=== PATIENT | male | born 1965 | race Caucasian/White ===

== ENCOUNTER 2021-01-31 15:35 | Emergency (ER) | payer SELFPAY ==
[~2021-01-31] VITALS: Ht 175.3 cm; Wt 90.7 kg
== END 2021-01-31 15:55 | disposition home or self-care (01) ==
LOC: ER 15:35
DX: Z00.00 Encounter for general adult medical examination without abnormal findings (principal); Z20.822 Contact with and (suspected) exposure to COVID-19
CPT/HCPCS: 99282

== ENCOUNTER 2023-07-07 01:56 | Emergency (ER) | payer OTHER ==
[~2023-07-07] VITALS: Ht 175.3 cm; Wt 83.9 kg
[2023-07-07 02:54] LABS: BASOPHILS ABSOLUTE AUTO 0.03 K/mm3 (0.00-0.23); BASOPHILS PERCENT AUTO 0 % (0-2); EOSINOPHILS ABSOLUTE AUTO 0.03 K/mm3 (0.00-0.68); EOSINOPHILS PERCENT AUTO 0 % (0-6); Hematocrit 41.9 % (37.0-53.0); IMMATURE GRAN ABSOLUTE AUTO 0.02 K/mm3 (0.00-0.10); IMMATURE GRAN PERCENT AUTO 0 % (0-1); LYMPHOCYTES ABSOLUTE AUTO 1.01 K/mm3 (0.84-5.20); LYMPHOCYTES PERCENT AUTO 12 % (21-46); MONOCYTES ABSOLUTE AUTO 0.56 K/mm3 (0.16-1.47); MONOCYTES PERCENT AUTO 7 % (4-13); Mean Corpuscular HGB 30.8 pg (26.0-34.0); Mean Corpuscular HGB Conc 33.4 g/dL (31.5-36.5); Mean Corpuscular Volume 92 fL (80-100); Mean Platelet Volume 9.2 fL (9.1-12.4); NEUTROPHILS ABSOLUTE AUTO 6.95 K/mm3 (1.96-9.15); NEUTROPHILS PERCENT AUTO 81 % (41-73); Platelet Count 204 K/mm3 (150-400); RDW Coefficient Variation 12.2 % (11.7-14.2); Red Blood Cell Count 4.55 M/mm3 (4.30-5.90)
[2023-07-07 03:05] LABS: Albumin, Blood 3.5 g/dL (3.4-5.0); Albumin/Globulin Ratio 0.9 (0.8-1.8); Bilirubin, Total 0.5 mg/dL (0.1-1.0); Bun/Creatinine Ratio 24.7 (12.0-20.0); Calcium, Blood 8.2 mg/dL (8.5-10.1); Creatinine, Blood 0.77 mg/dL (0.60-1.20); Globulin, Blood 3.8 g/dL (2.2-4.0); Potassium, Blood 3.8 mmol/L (3.5-5.5); Total Protein, Blood 7.3 g/dL (6.4-8.2)
[2023-07-07] MEDS ORDERED: ACET500 PO (06:10)
[2023-07-07 06:15] VITALS: BP 107/71
== END 2023-07-07 06:18 | disposition home or self-care (01) ==
LOC: ER 01:56
PROVIDERS: Emergency Medicine
DX: S02.32XA Fracture of orbital floor, left side, initial encounter for closed fracture (principal); S02.2XXA Fracture of nasal bones, initial encounter for closed fracture; S01.112A Laceration without foreign body of left eyelid and periocular area, initial encounter; Z87.820 Personal history of traumatic brain injury; Y04.8XXA Assault by other bodily force, initial encounter
CPT/HCPCS: 12011; 70450; 70486; 71045; 72125; 73030; 73502; 80053; 85025; 86850; 86900; 86901; 99285-25

== ENCOUNTER 2025-05-29 10:06 | Inpatient (IN) | payer OTHER ==
[~2025-05-29] VITALS: Ht 175.3 cm; Wt 65.9 kg
[~2025-05-29 10:06] MED LIST: ACET500 PO; Cipro500 MG PO; ELIQUIS5 M2 PO; FAMO10 PO; JARDIANCE10 MG PO; METO25ER PO; TAMS.4ER PO
[2025-05-29] MEDS ORDERED: Lidocaine 2% Jelly Uro-Jet UR ONE (10:40)
[2025-05-29 10:51] LABS: BASOPHILS ABSOLUTE AUTO 0.02 K/mm3 (0.00-0.23); BASOPHILS PERCENT AUTO 0 % (0-2); EOSINOPHILS ABSOLUTE AUTO 0.01 K/mm3 (0.00-0.68); EOSINOPHILS PERCENT AUTO 0 % (0-6); Hematocrit 28.8 % (37.0-53.0); Hemoglobin 9.6 g/dL (13.5-17.5); IMMATURE GRAN ABSOLUTE AUTO 0.14 K/mm3 (0.00-0.10); IMMATURE GRAN PERCENT AUTO 1 % (0-1); LYMPHOCYTES ABSOLUTE AUTO 0.39 K/mm3 (0.84-5.20); LYMPHOCYTES PERCENT AUTO 3 % (21-46); MONOCYTES ABSOLUTE AUTO 1.59 K/mm3 (0.16-1.47); MONOCYTES PERCENT AUTO 13 % (4-13); Mean Corpuscular HGB Conc 33.3 g/dL (31.5-36.5); Mean Corpuscular Volume 89 fL (80-100); NEUTROPHILS ABSOLUTE AUTO 10.30 K/mm3 (1.96-9.15); NEUTROPHILS PERCENT AUTO 83 % (41-73); NRBC ABSOLUTE 0.00 K/mm3 (0.00-0.02); NRBC Auto 0.0 /100 WBC (0.0-0.2); Platelet Count 376 K/mm3 (150-400); RDW Coefficient Variation 14.6 % (11.7-14.2); RDW Standard Deviation 47.7 fL (35.1-46.3)
[2025-05-29] MEDS ORDERED: Magnesium Sulf 2 GM/Water 50ML 50 ML IV ONE (11:15)
[2025-05-29 11:18] LABS: Alanine Aminotransfer (ALT/SGP 18.0 U/L (12-78); Albumin, Blood 2.9 g/dL (3.4-5.0); Albumin/Globulin Ratio 0.5 (0.8-1.8); Anion Gap 19.0 mmol/L (3-11); Aspartate Aminotrans (AST/SGOT 12.0 U/L (12-37); Bilirubin, Total 0.2 mg/dL (0.1-1.0); Blood Urea Nitrogen 140.0 mg/dL (8-24); CO2, Blood 11.0 mmol/L (21-32); Calcium, Blood 8.8 mg/dL (8.5-10.1); Chloride, Blood 103.0 mmol/L (98-108); Creatinine, Blood 13.4 mg/dL (0.60-1.20); Globulin, Blood 5.6 g/dL (2.2-4.0); Glucose, Blood 123.0 mg/dL (70-99); Potassium, Blood 5.0 mmol/L (3.5-5.5); Sodium, Blood 128.0 mmol/L (136-145); Total Protein, Blood 8.5 g/dL (6.4-8.2)
[2025-05-29 11:25] LABS: Source, Urine Foley catheter
[2025-05-29 11:38] LABS: Bilirubin, Urine Neg (Neg); Color, Urine Red (P-Yellow); Glucose Qualitative, Urine Neg (Neg); Ketones, Urine 1+ (Neg); Leukocyte Esterase, Urine 3+ (Neg); Protein, Urine 4+ (Neg); Specific Gravity, Urine 1.005 (1.003-1.022); Urobilinogen, Urine NORM (Normal)
[2025-05-29] MEDS ORDERED: Morphine Sulfate 4 MG/1 ML Injection IV ONE (11:55)
[2025-05-29 12:00] LABS: pH Blood Venous 7.16 (7.34-7.37)
[2025-05-29 12:02] LABS: Red Blood Cells, Urine 0-2 /hpf (0-2); White Blood Cells, Urine TNTC /hpf (0-5)
[2025-05-29] MEDS ORDERED: Sodium Bicarb 8.4% 1 MEQ/ML 50 ML Vial IV ONE (12:05)
[2025-05-29] MEDS ORDERED: Ondansetron HCl 2 MG / ML 2ML Vial IV PRN (12:30)
[2025-05-29] MEDS ORDERED: FLU VACC TS2025-26(6MOS UP)/PF 45 MCG/0.5 ML SYRINGE IM SCH (12:35)
[2025-05-29] MEDS ORDERED: CefTRIAXone Sodium 1,000 MG in NS 100 ML IV SCH (13:00)
[2025-05-29] MEDS ORDERED: Sodium Bicarb 8.4% Inj 100 MEQ in Sodium Chloride 0.45% 1,000 ML IV SCH ×2 (13:25→21:00)
[2025-05-29] MEDS ORDERED: Heparin Sodium,Porcine 5,000 UNIT/0.5 ML SDV SC SCH (14:00)
[2025-05-29 15:40] LABS: Ferritin, Serum 413.0 ng/mL (26-388); Total Iron Binding Capacity 296.0 ug/dL (250-450)
[2025-05-29 16:04] VITALS: BP 110/43
[2025-05-29 16:10] LABS: U Amphetamine Screen DETECTED; U Barbiturate Screen Not Detected; U Benzodiazapine Screen Not Detected; U Buprenorphine Screen Not Detected; U Cannabinoids Screen Not Detected; U Cocaine Screen Not Detected; U Methadone Screen Not Detected; U Methamphetamine Screen DETECTED; U Opiates Screen Not Detected; U Oxycodone Screen Not Detected; U Phencyclidine Screen Not Detected
[2025-05-29 17:09] LABS: Anion Gap 17.0 mmol/L (3-11); Blood Urea Nitrogen 147.0 mg/dL (8-24); CO2, Blood 15.0 mmol/L (21-32); Calcium, Blood 8.7 mg/dL (8.5-10.1); Chloride, Blood 100.0 mmol/L (98-108); Creatinine, Blood 13.6 mg/dL (0.60-1.20); Glucose, Blood 159.0 mg/dL (70-99); Potassium, Blood 4.3 mmol/L (3.5-5.5); Sodium, Blood 128.0 mmol/L (136-145)
--- NOTE | 2025-05-29 18:19 | NUR ---
ADMIT NOTE/SHIFT SUMMARY PT ARRIVED TO PCU FROM ED VIA ED STRETCHER AT APPROX 1500. PT AMBULATED FROM ED STRETCHER TO PCU BED SBA. PT A&OX4, ABLE TO MAKE NEEDS KNOWN. SP02>90% ON RA. STATES SOB W/ EXERTION. TELEMETRY SHOWS NSR, HR 70'S-80'S. C/O OF WEAKNESS. BICARB GTT INFUSING PER EMAR. TOX SCREEN SENT TO LAB. COUCH CATHETER DRAINING MAROON, THICK URINE TO GRAVITY. NO BM, PT STATES 3 DAYS. PT STATES HASNT EATEN OR DRANK X3 DAYS. DURING ADMIT, PT NOTED TO HAVE NO CONNECTED UTILITIES AT HOME. HPSITAL ASSISTANCE IN ROOM TO PROVIDE RESOURCES. PT WITH CRITICAL CREATININE, 13.6. CALL PLACED TO MD HERNANDEZ. MD HERNANDEZ WITH BMP AT 2200. MD LI ALSO NOTIFIED, MD MENDOSA TO CONSULT IN PERSON DUE TO PK AT HOME DOWN. PT RESTING IN ROOM, CALL LIGHT IN REACH.
[2025-05-29 19:15] VITALS: BP 120/80
[2025-05-29] MEDS ORDERED: Lidocaine 4% 1 Patch TOP SCH ×2 (21:00)
[2025-05-29 23:36] VITALS: BP 119/75
[2025-05-29 23:46] LABS: Anion Gap 16.0 mmol/L (3-11); Blood Urea Nitrogen 158.0 mg/dL (8-24); CO2, Blood 17.0 mmol/L (21-32); Calcium, Blood 7.8 mg/dL (8.5-10.1); Chloride, Blood 98.0 mmol/L (98-108); Creatinine, Blood 12.6 mg/dL (0.60-1.20); Glucose, Blood 119.0 mg/dL (70-99); Potassium, Blood 4.0 mmol/L (3.5-5.5); Sodium, Blood 127.0 mmol/L (136-145)
[2025-05-30 04:21] VITALS: BP 136/87; BP 176/93
[2025-05-30 05:07] LABS: BASOPHILS ABSOLUTE AUTO 0.01 K/mm3 (0.00-0.23); BASOPHILS PERCENT AUTO 0 % (0-2); EOSINOPHILS ABSOLUTE AUTO 0.09 K/mm3 (0.00-0.68); EOSINOPHILS PERCENT AUTO 1 % (0-6); Hematocrit 22.7 % (37.0-53.0); Hemoglobin 7.8 g/dL (13.5-17.5); IMMATURE GRAN ABSOLUTE AUTO 0.14 K/mm3 (0.00-0.10); IMMATURE GRAN PERCENT AUTO 1 % (0-1); LYMPHOCYTES ABSOLUTE AUTO 0.43 K/mm3 (0.84-5.20); LYMPHOCYTES PERCENT AUTO 4 % (21-46); MONOCYTES ABSOLUTE AUTO 1.17 K/mm3 (0.16-1.47); MONOCYTES PERCENT AUTO 10 % (4-13); Mean Corpuscular HGB Conc 34.4 g/dL (31.5-36.5); Mean Corpuscular Volume 87 fL (80-100); NEUTROPHILS ABSOLUTE AUTO 9.38 K/mm3 (1.96-9.15); NEUTROPHILS PERCENT AUTO 84 % (41-73); NRBC ABSOLUTE 0.00 K/mm3 (0.00-0.02); NRBC Auto 0.0 /100 WBC (0.0-0.2); Platelet Count 309 K/mm3 (150-400); RDW Coefficient Variation 14.2 % (11.7-14.2); RDW Standard Deviation 45.0 fL (35.1-46.3)
[2025-05-30 05:40] LABS: Magnesium, Blood 2.1 mg/dL (1.6-2.4)
[2025-05-30 05:46] LABS: Alanine Aminotransfer (ALT/SGP 13.0 U/L (12-78); Albumin, Blood 2.4 g/dL (3.4-5.0); Albumin/Globulin Ratio 0.5 (0.8-1.8); Anion Gap 15.0 mmol/L (3-11); Aspartate Aminotrans (AST/SGOT 8.0 U/L (12-37); Bilirubin, Total 0.2 mg/dL (0.1-1.0); Blood Urea Nitrogen 149.0 mg/dL (8-24); CO2, Blood 18.0 mmol/L (21-32); Calcium, Blood 7.3 mg/dL (8.5-10.1); Chloride, Blood 98.0 mmol/L (98-108); Creatinine, Blood 12.2 mg/dL (0.60-1.20); Globulin, Blood 4.6 g/dL (2.2-4.0); Glucose, Blood 148.0 mg/dL (70-99); Phosphorus, Blood 5.0 mg/dL (2.5-4.9); Potassium, Blood 3.7 mmol/L (3.5-5.5); Sodium, Blood 127.0 mmol/L (136-145); Total Protein, Blood 7.0 g/dL (6.4-8.2)
--- NOTE | 2025-05-30 05:55 | NUR ---
SHIFT SUMMARY PT A/O X 3-4, CONFUSED ABOUT DATE/TIME. HE IS COOPERATIVE WITH CARE AND FOLLOWS COMMANDS. SINUS RHYTHM 90s, BP STABLE, DENIES CHEST PAIN/PRESSURE. SPO2 > 95% ON ROOM AIR, REPORTS IMPROVED BREATHING SINCE ADMISSION. BICARB GTT INFUSING PER EMAR. PT WITH CRITICAL CREATININE, 12.6, AWARE, TRENDING IN THE EXPECTED DIRECTION. COUCH CATH PATENT AND DRAINING URINE TO GRAVITY. URINE WAS MAROON AT BEGINNING OF SHIFT, COLOR HAS LIGHTENED AND APPEARS MORE CLOUDY AT THIS TIME. H&H TRENDING DOWN, MD NOTIFIED, VERBAL ORDERS FOR REPEAT LABS IN TWO HOURS. PATIENT REPORTS BACK PAIN THAT IMPROVED AFTER MEDS, SEE EMAR. PT PATIENT RESTING IN ROOM. BED LOCKED IN LOWEST POSITION, CALL LIGHT WITHIN REACH.
[2025-05-30 07:31] VITALS: BP 115/78
[2025-05-30 07:43] LABS: Hematocrit 21.7 % (37.0-53.0); Hemoglobin 7.7 g/dL (13.5-17.5)
[2025-05-30] MEDS ORDERED: Sod Ferric Gluc Complx/Sucrose 125 MG in NS 100 ML IV SCH (09:00)
[2025-05-30] MEDS ORDERED: Epoetin Alfa-EPBX 10,000 Unit/ML 1ML Vial SC SCH (09:00)
[2025-05-30 11:10] VITALS: BP 115/77
[2025-05-30] MEDS ORDERED: NS 1,000 ML IV SCH (12:30)
[2025-05-30] MEDS ORDERED: Hytrin1 MG PO (12:51)
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
[2025-05-30 15:45] VITALS: BP 111/74
--- NOTE | 2025-05-30 18:19 | NUR ---
SHIFT SUMMARY PT WAS COOPERATIVE THE ENTIRE SHIFT. HE HAD BEEN CHANGING POSITIONS ON HIS OWN. WITH COUCH CATHETER ATTACHED TO UROMETER, DRAINING WELL. PT VITALS: HR ON THE 90S, SBP ON 115, SATS >95% ON ROOM AIR. PT HAS BEEN REFUSING HIS DUE HEPARIN SQ INJECTIONS. EDUCATED PT ON IMPORTANCE OF HEPARIN SHOTS BUT STILL REFUSED. BEDSIDE 2D ECHO WAS DONE. WILL REPORT TO NEXT SHIFT
[2025-05-30 19:52] VITALS: BP 115/82
--- NOTE | 2025-05-30 20:27 | NUR ---
ASSUMED CARE OF PATIENT AT 1900. PATIENT SLEEPIN BUT EASILY AWAKES TO VERBAL STIMULI FOR ASSESSMENT. PATIENT A/O X 4, SPEAKING IN COMPLETE SENTENCES AND FOLLOWS COMMANDS. SINUS 80-90s, BP STABLE. PATIENT DENIES CHEST PAIN OR PRESSURE. SPO2 > 95% ON ROOM AIR, DENIES SOB. ABDOMEN IS FIRM AND NONTENDER, PATIENT STATES NORMAL. COUCH CATH PATENT AND DRAINING THICK, LIGHT ROMEO URINE TO GRAVITY. PATIENT ENDORSES BACK PAIN, REPOSITIONED PATIENT AND TREATED PER EMAR. PATIENT STATES NO OTHER NEEDS AT THIS TIME. BED LOCKED IN LOWEST POSITION AND CALL LIGHT WITHIN REACH.
[2025-05-31 00:49] VITALS: BP 125/85
[2025-05-31 03:46] VITALS: BP 123/86
[2025-05-31 04:49] LABS: BASOPHILS ABSOLUTE AUTO 0.03 K/mm3 (0.00-0.23); BASOPHILS PERCENT AUTO 0 % (0-2); EOSINOPHILS ABSOLUTE AUTO 0.12 K/mm3 (0.00-0.68); EOSINOPHILS PERCENT AUTO 1 % (0-6); Hematocrit 22.6 % (37.0-53.0); Hemoglobin 7.6 g/dL (13.5-17.5); IMMATURE GRAN ABSOLUTE AUTO 0.28 K/mm3 (0.00-0.10); IMMATURE GRAN PERCENT AUTO 2 % (0-1); LYMPHOCYTES ABSOLUTE AUTO 0.61 K/mm3 (0.84-5.20); LYMPHOCYTES PERCENT AUTO 5 % (21-46); MONOCYTES ABSOLUTE AUTO 1.33 K/mm3 (0.16-1.47); MONOCYTES PERCENT AUTO 10 % (4-13); Mean Corpuscular HGB Conc 33.6 g/dL (31.5-36.5); Mean Corpuscular Volume 88 fL (80-100); NEUTROPHILS ABSOLUTE AUTO 11.18 K/mm3 (1.96-9.15); NEUTROPHILS PERCENT AUTO 83 % (41-73); NRBC ABSOLUTE 0.00 K/mm3 (0.00-0.02); NRBC Auto 0.0 /100 WBC (0.0-0.2); Platelet Count 297 K/mm3 (150-400); RDW Coefficient Variation 14.6 % (11.7-14.2); RDW Standard Deviation 47.1 fL (35.1-46.3)
[2025-05-31 05:26] LABS: Magnesium, Blood 1.9 mg/dL (1.6-2.4)
[2025-05-31 05:30] LABS: Albumin, Blood 1.9 g/dL (3.4-5.0); Anion Gap 15 mmol/L (3-11); Blood Urea Nitrogen 158 mg/dL (8-24); CO2, Blood 19 mmol/L (21-32); Calcium, Blood 6.6 mg/dL (8.5-10.1); Chloride, Blood 101 mmol/L (98-108); Creatinine, Blood 10.70 mg/dL (0.60-1.20); Glucose, Blood 109 mg/dL (70-99); Phosphorus, Blood 4.8 mg/dL (2.5-4.9); Potassium, Blood 4.1 mmol/L (3.5-5.5); Sodium, Blood 131 mmol/L (136-145)
--- NOTE | 2025-05-31 05:40 | NUR ---
SHIFT SUMMARY SEE PREVIOUS NOTES. PATIENT REMAINS A/O X 4, SLEEPING INTERMITTENTLY T/O SHIFT. ALL VSS STABLE. PATIENT HAD 1x EPISODE OF NAUSEA AND VOMITING. ADMINISTERED ZOFRAN AND NAUSEA/VOMITTING RESOLVED. PATIENT HAS BEEN ABLE TO EAT AND DRINK FLUIDS WITHOUT RECURRENCE OF VOMITING. PATIENT HAD LARGE, FORMED BM THIS SHIFT. HE IS NOW RESTING COMFORTABLY IN THE ROOM. BED LOCKED IN LOWEST POSITION AND CALL LIGHT WITHIN REACH.
--- NOTE | 2025-05-31 06:10 | NUR ---
SHIFT SUMMARY SEE PREVIOUS NOTES. PATIENT REMAINS A/O X 4, VSS STABLE T/O SHIFT. HE WAS ABLE TO SLEEP COMFORTABLY FOR MOST OF SHIFT. NO ACUTE CHANGES. PT STATES NO OTHER NEEDS AT THIS TIME. PATIENT STILL RESTING COMFORTABLY IN ROOM. BED LOCKED IN LOWEST POSITION AND CALL LIGHT WITHIN REACH.
[2025-05-31 07:33] VITALS: BP 119/89
[2025-05-31] MEDS ORDERED: Vitamin B Cmplx/Vit C/Folic Ac 1 Tab PO SCH (09:00)
[2025-05-31] MEDS ORDERED: Folic Acid 1 MG TAB PO SCH (09:00)
--- NOTE | 2025-05-31 10:30 | NUR ---
UPDATE: PT REFUSES HEPARIN INJECTIONS, EDUCATED ON INDICATION, RISK OF REFUSAL, AND BENEFIT OF MEDICATION, MEDICATION DC'D FROM EMAR PER MD ALLAN, SCD'S IN PLACE.
[2025-05-31 11:58] VITALS: BP 127/96
[2025-05-31] MEDS ORDERED: NS 1,000 ML IV SCH (16:30)
[2025-05-31 16:56] VITALS: BP 126/90
[2025-05-31] MEDS ORDERED: CALCIUM GLUC IN NACL, ISO-OSM 50 ML IV ONE (17:35)
--- NOTE | 2025-05-31 18:42 | NUR ---
SHIFT SUMMARY MEDICAL STATUS W/TELE A/OX4, PLEASANT AND COOPERATIVE WITH CARE, ABLE TO COMMUNICATE NEEDS, USES CALL LIGHT APPROPRIATELY. NSR, HR 80 S, LR RUNNING PER ORDER, EF 45-50%, PT DENIES CHEST PAIN OR PRESSURE. SPO2 >92% ON RA, DENIES SOB. COUCH CATHETER PATENT AND DRAINING TO GRAVITY, URINE IS YELLOW W/SEDIMENT. SBA TO BEDSIDE COMMODE. ORIENTED TO CALL LIGHT, PT EXPRESSES NO FURTHER NEEDS AT THIS TIME.
[2025-05-31 20:45] VITALS: BP 135/91
[2025-06-01 00:21] VITALS: BP 142/90
[2025-06-01 04:03] VITALS: BP 141/92
[2025-06-01 05:03] LABS: Hematocrit 22.8 % (37.0-53.0); Hemoglobin 7.7 g/dL (13.5-17.5); Mean Corpuscular HGB Conc 33.8 g/dL (31.5-36.5); Mean Corpuscular Volume 89 fL (80-100); NRBC ABSOLUTE 0.00 K/mm3 (0.00-0.02); NRBC Auto 0.0 /100 WBC (0.0-0.2); Platelet Count 332 K/mm3 (150-400); RDW Coefficient Variation 14.5 % (11.7-14.2); RDW Standard Deviation 46.6 fL (35.1-46.3)
[2025-06-01 05:26] LABS: BAND PERCENT MAN 1 % (0-8); BASOPHILS ABSOLUTE MAN 0.11 K/mm3 (0.00-0.23); BASOPHILS PERCENT MAN 1 % (0-2); EOSINOPHILS ABSOLUTE MAN 0.44 K/mm3 (0.00-0.68); EOSINOPHILS PERCENT MAN 4 % (0-6); LYMPHOCYTES ABSOLUTE MAN 0.33 K/mm3 (0.84-5.20); LYMPHOCYTES PERCENT MAN 3 % (21-46); METAMYELOCYTE ABSOLUTE MAN 0.22 K/mm3 (0.00-0.00); METAMYELOCYTE PERCENT MAN 2 % (0-0); MONOCYTES ABSOLUTE MAN 0.67 K/mm3 (0.16-1.47); MONOCYTES PERCENT MAN 6 % (4-13); MYELOCYTE ABSOLUTE MAN 0.56 K/mm3 (0.00-0.00); MYELOCYTE PERCENT MAN 5 % (0-0); NEUTROPHILS ABSOLUTE MAN 8.86 K/mm3 (1.96-9.15); SEG NEUTROPHILS PERCENT MAN 78 % (41-73)
[2025-06-01 05:47] LABS: Albumin, Blood 1.9 g/dL (3.4-5.0); Anion Gap 12 mmol/L (3-11); Blood Urea Nitrogen 149 mg/dL (8-24); CO2, Blood 20 mmol/L (21-32); Calcium, Blood 6.8 mg/dL (8.5-10.1); Chloride, Blood 105 mmol/L (98-108); Creatinine, Blood 9.61 mg/dL (0.60-1.20); Glucose, Blood 127 mg/dL (70-99); Phosphorus, Blood 3.9 mg/dL (2.5-4.9); Potassium, Blood 4.3 mmol/L (3.5-5.5); Sodium, Blood 133 mmol/L (136-145)
--- NOTE | 2025-06-01 05:51 | NUR ---
SHIFT SUMMARY PATIENT IS NOW MEDICAL STATUS WITH TELE. HE REMAINS A/O X 4, USES CALL LIGHT APPROPRIATELY AND IS COOPERATIVE WITH CARE. SINUS RHYTHM 70-80s, BP STABLE, DENIES CHEST PAIN OR PRESSURE. SATS MAINTAINED >95% ON ROOM AIR, BREATHING EVEN AND UNLABORED. COUCH CATH PATENT AND DRAINING TO GRAVITY, URINE IS LIGHT YELLOW WITH HEAVY SEDIMENT. BACK PAIN HAS BEEN WELL CONTROLLED WITH LIDOCAINE PATCHES. SCDs TO BLE DUE TO REFUSAL OF SC HEPARIN. CRITICAL VALUE RECEIVED AT 0545, CREATININE 9.61. VACUUM SPINDLE SANDER NOTIFIED, TRENDING IN THE EXPECTED DIRECTION. NO ACUTE EVENTS THIS SHIFT. PATIENT RESTING COMFORTABLY IN THE ROOM. BED LOCKED IN LOWEST POSITION, CALL LIGHT WITHIN REACH.
[2025-06-01 07:29] VITALS: BP 141/95
[2025-06-01] MEDS ORDERED: CeFAZolin Sodium 1,000 MG in NS 50 ML IV SCH (09:00)
[2025-06-01 15:52] VITALS: BP 121/78
--- NOTE | 2025-06-01 17:57 | NUR ---
SHIFT SUMMARY PATIENT WAS SLEEPING AND AROUSABLE AT START OF SHIFT, AOX4. SBP 120'S-140'S. MAP >65. HR SR 80'S. O2 SATS >95 ON RA. HE IS A HD PATIENT, HOWEVER NO HD TODAY. FOLLEY CATHETER IN PLACE DRAINING TO GRAVITY URINE YELLOW IN COLOR. ECHO RESULTS IN CHART. STATUS CHANGED TO MED NO TELE PER PROVIDER. DENIES CHEST PAIN/PRESSURE/SOB. SBA TO CHAIR. HE HAD A SHOWER TODAY AND WAS HELPED TO RECLINER FOR LUNCH. HE WAS LATER MOVED BACK TO BED. PATIENT RESTING COMFORTABLY IN BED IN LOWEST POSITION WITH CALL LIGHT IN REACH.
[2025-06-01 19:43] VITALS: BP 132/89
[2025-06-02 00:18] VITALS: BP 138/93
--- NOTE | 2025-06-02 00:20 | NUR ---
TRANSFER OF CARE PT A&O X4, CALM, COOPERATIVE TO CARE. PT MEDICAL STATUS NO TELE. SBP STABLE. HE DENIED ANY CP/PRESSURE, NUMB/TINGLING. SpO2 >92% ON RA, HE DENIED ANY SOB. PT HAS COUCH CATH IN PLACE, DRAINING TO GRAVITY. PT DENIED ANY PAIN. BED AVAILABLE UPSTAIRS. REPORT GIVEN TO RN. PT LEFT PCU VIA BED WITH PCT.
--- NOTE | 2025-06-02 00:49 | NUR ---
transfer note: pt arrived on unit via gurney with two pcu tech. Pt has lr running at 150 an hour. pt vs taken and drinksgiven to pt as requested.
[2025-06-02 04:00] VITALS: BP 148/96
--- NOTE | 2025-06-02 04:22 | NUR ---
SHIFT SUMMARY: PT IS A PCU TRANSFER THIS SHIFT. PT MEDICATED WITH MELATONIN REQUESTED. PT HAD AN ANGRY OUTBURST AND NEEDED REASSURANCE SEVERAL TIMES WHILE WAITING FOR PHARAMCY TO VERIFY MEDICATION. PT STATED THEY WERE FRUSTRATED AND WANTED THEIR MEDICATION RIGHT NOW. PT HAS LR RUNNING AT BEDSIDE AT 150 MLS/HR. COUCH IS IN PLACE AND DRAINING BELOW THE BLADDER TO GRAVITY.
[2025-06-02 07:53] VITALS: BP 150/89
--- NOTE | 2025-06-02 11:15 | NUR ---
DR ALLAN ROUNDED, PATIENT TO STAY ANOTHER NIGHT FOR WORSENING KIDNEY FUNCTION, NEPHROLOGY TRYING TO ALLOW TIME FOR PATIENTS KIDNEYS TO SELF HEAL, CALL LIGHT WITH IN REACH
[2025-06-02 13:22] LABS: Albumin, Blood 2.1 g/dL (3.4-5.0); Anion Gap 13 mmol/L (3-11); Blood Urea Nitrogen 131 mg/dL (8-24); CO2, Blood 22 mmol/L (21-32); Calcium, Blood 7.6 mg/dL (8.5-10.1); Chloride, Blood 106 mmol/L (98-108); Creatinine, Blood 8.78 mg/dL (0.60-1.20); Glucose, Blood 121 mg/dL (70-99); Phosphorus, Blood 2.8 mg/dL (2.5-4.9); Potassium, Blood 4.5 mmol/L (3.5-5.5); Sodium, Blood 136 mmol/L (136-145)
[2025-06-02 15:56] VITALS: BP 142/99
--- NOTE | 2025-06-02 18:15 | NUR ---
NO ACUTE CHANGES, CREATINE 8.[address] HANNAH, PATIENT COOPERATIVE TO CARE, INSISTENT FOR FOOD, MEDICATED FOR PAIN WITH OXYCODONE, CALL LIGHT WITH IN REACH, 1PA, WILL RELAY TO PM RN
[2025-06-02 19:51] VITALS: BP 136/90
[2025-06-03 05:07] VITALS: BP 132/90
--- NOTE | 2025-06-03 06:57 | NUR ---
SHIFT SUMMARY: Pt is admitted for AKF and is a full code. Is alert and able to make needs known. ADLs have been SBA. pain has been managed with prn medications. Parson in place and draining clear light yellow urine.
[2025-06-03 07:16] LABS: Albumin, Blood 2.0 g/dL (3.4-5.0); Anion Gap 13 mmol/L (3-11); Blood Urea Nitrogen 125 mg/dL (8-24); CO2, Blood 20 mmol/L (21-32); Calcium, Blood 7.4 mg/dL (8.5-10.1); Chloride, Blood 105 mmol/L (98-108); Creatinine, Blood 8.44 mg/dL (0.60-1.20); Glucose, Blood 101 mg/dL (70-99); Phosphorus, Blood 3.3 mg/dL (2.5-4.9); Potassium, Blood 4.5 mmol/L (3.5-5.5); Sodium, Blood 133 mmol/L (136-145)
[2025-06-03 07:34] VITALS: BP 131/82
[2025-06-03] MEDS ORDERED: NS 250 ML IV PRN (08:20)
--- NOTE | 2025-06-03 10:35 | NUR ---
CONSULT RECEIVED FOR ADVANCED CARE PLANNING RELATED TO WORSENING KIDNEY FUNCTION. NO POLST ON FILE. WILL SPEAK WITH PATIENT TODAY.
[2025-06-03 16:53] VITALS: BP 133/90
[2025-06-03] MEDS ORDERED: Polyethylene Glycol 3350 17 gm PO SCH (16:55)
--- NOTE | 2025-06-03 18:54 | NUR ---
SHIFT SUMMARY: PATIENT IS A&Ox4, MOSTLY PLEASANT AND COOPERATIVE. 1 PERSON STANDBY ASSIST TO COMMODE, COUCH CATHETER IN PLACE. PT HAS HAD COPIOUS AMOUNTS OF FLATULENCE WITH GAS PAINS TODAY. DISCUSSED WITH THE PROVIDER, TREATED WITH SIMETHICONE. PATIENT REFUSED PRESCRIBED MIRALAX. PATIENT HAD A SIZEBLE BOWEL MOVEMENT JUST PRIOR TO SHIFT CHANGE AND STATES THAT HE IS FEELING BETTER. PT REFUSED DINNER. PT RESTING IN BED WATCHING TV. BED IN LOWEST POSITION, CALL LIGHT WITHIN REACH.
[2025-06-03] MEDS ORDERED: Lactobacil 2-S.Thermo-Bifido 1 1 Cap PO SCH (21:00)
--- NOTE | 2025-06-04 03:44 | NUR ---
SHIFT SUMMARY PT IS ALERT AND ORIENTED X4. ABLE TO MAKE NEEDS KNOWN. PT SLEPTT THROUGHOUT THE NIGHT. 1 PERSON ASSIST TO THE COMMODE. COUCH CATHETER IN PLACE DRAINING PALE YELLOW URINE. INTERMITTENT FOUL SMELLING FLATULENCE THROUGHOUT NIGHT. VSS. CALL LIGHT WITHIN REACH.
[2025-06-04 04:34] VITALS: BP 140/97
[2025-06-04 05:10] LABS: Hematocrit 25.2 % (37.0-53.0); Hemoglobin 8.1 g/dL (13.5-17.5); Mean Corpuscular HGB Conc 32.1 g/dL (31.5-36.5); NRBC ABSOLUTE 0.03 K/mm3 (0.00-0.02); NRBC Auto 0.2 /100 WBC (0.0-0.2); Platelet Count 401 K/mm3 (150-400); RDW Coefficient Variation 14.7 % (11.7-14.2); RDW Standard Deviation 48.0 fL (35.1-46.3)
[2025-06-04 05:20] LABS: Mean Corpuscular Volume 94 fL (80-100)
[2025-06-04 06:18] LABS: Albumin, Blood 2.3 g/dL (3.4-5.0); Anion Gap 15 mmol/L (3-11); Blood Urea Nitrogen 123 mg/dL (8-24); CO2, Blood 20 mmol/L (21-32); Calcium, Blood 8.0 mg/dL (8.5-10.1); Chloride, Blood 106 mmol/L (98-108); Creatinine, Blood 7.69 mg/dL (0.60-1.20); Glucose, Blood 102 mg/dL (70-99); Phosphorus, Blood 3.4 mg/dL (2.5-4.9); Potassium, Blood 5.3 mmol/L (3.5-5.5); Sodium, Blood 136 mmol/L (136-145)
[2025-06-04 08:25] VITALS: BP 139/91
[2025-06-04 15:18] VITALS: BP 124/91
--- NOTE | 2025-06-04 17:00 | NUR ---
DAY SHIFT SUMMARY: PATIENT MEDICATED FOR SHOULDER PAIN PER EMAR c GOOD EFFECT. PATIENT DENIES CP/PRESSURE, SOB, N/V AND DIZZINESS. PATIENT HAS GREAT APPETITE, COUCH IN PLACED FOR ACUTE RETENTION, PATENT DRAINING CLEAR YELLOW URINE TO GRAVITY. PATIENT RECEIVED SCHEDULED MEDS PER EMAR. VITAL SIGNS REVIEWED. LR INFUSING AT 100 MLS/HR. BED IN LOWEST POSITION. CALL LIGHT IN REACH.
[2025-06-04 19:40] VITALS: BP 132/87
[2025-06-05 04:36] VITALS: BP 124/91
--- NOTE | 2025-06-05 06:01 | NUR ---
SHIFT SUMMARY PATIENT A&OX-4, BECAME DISORIENTED DURNING MIDDLE OF SHIFT TO TIME, ABLE TO MAKE NEEDS KNOWN, USES CALL LIGHT APPROPRIATELY, COUCH DRAINING, NO DISTRESS NOTED, CALL LIGHT WITHIN REACH, BED AT LOWEST LEVEL, RAILS UPX2. NO DISTRESS NOTED
[2025-06-05 06:38] LABS: Albumin, Blood 2.1 g/dL (3.4-5.0); Anion Gap 12 mmol/L (3-11); Blood Urea Nitrogen 128 mg/dL (8-24); CO2, Blood 21 mmol/L (21-32); Calcium, Blood 8.0 mg/dL (8.5-10.1); Chloride, Blood 104 mmol/L (98-108); Creatinine, Blood 7.61 mg/dL (0.60-1.20); Glucose, Blood 125 mg/dL (70-99); Phosphorus, Blood 4.2 mg/dL (2.5-4.9); Potassium, Blood 4.8 mmol/L (3.5-5.5); Sodium, Blood 132 mmol/L (136-145)
[2025-06-05 08:18] VITALS: BP 122/79
[2025-06-05 14:49] VITALS: BP 121/84
--- NOTE | 2025-06-05 16:37 | NUR ---
DAY SHIFT SUMMARY: PATIENT KHOA DC'D AT 1640 PER ORDER. PATIENT MEDICATED FOR BACK PAIN PER EMAR c GOOD EFFECT. PATIENT HAS GREAT APPETITE AND HAD ONE EXTRA LARGE BM THIS SHIFT. PATIENT RECEIVED SCHEDULED MEDS PER EMAR, VITAL SIGNS REVIEWED. PATIENT HAS HAD NO NEW CHANGES, RESTING IN BED ON/OFF T/O SHIFT. PATIENT A/OX4, CALLS APPROPRIATELY AND MAKE NEEDS KNOWN. BED IN LOWEST POSITION. CALL LIGHT IN REACH.
[2025-06-05 19:48] VITALS: BP 131/78
--- NOTE | 2025-06-05 23:58 | NUR ---
DURING THIS WRTER'S BREAK TIME, THE BREAK NURSE REPORTS THAT PT MOANING ATTEMPTING TO URINATE ON THE BSC. NEW ORDERS FOR STRAIGHT CATH AND UA CULTURE RECEIVED WELL ORDER FOR BLADDER SCAN. SCAN SHOWING RETAINING 780MLS. RN DUSTING EDUCATING SPORTS BOOK SERVER AND PERFORMED STRAIGHT CATHING WITH THE RN GRAD. UA CULTURE- WILL SEND TO THE LAB. NEW ORDER FOR PYRIDIUM REVIEVED FROM THE ON-CALL HOSPITALIST. WILL ADMINISTER ORDERED.
[2025-06-06 00:20] LABS: Source, Urine Straight Cath
[2025-06-06 00:23] LABS: Bilirubin, Urine Neg (Neg); Glucose Qualitative, Urine 1+ (Neg); Ketones, Urine Neg (Neg); Leukocyte Esterase, Urine 3+ (Neg); Protein, Urine 2+ (Neg); Specific Gravity, Urine 1.010 (1.003-1.022); Urobilinogen, Urine NORM (Normal)
[2025-06-06 00:29] LABS: Color, Urine Pale Yellow (P-Yellow); Red Blood Cells, Urine 0-2 /hpf (0-2)
--- NOTE | 2025-06-06 03:19 | NUR ---
SHIFT SUMMARY SEE PREVIOUS NOTE. PT ATTEMPTED TO VOID AT [facility]. UNSUCCESSFUL. PT STRAIGHT CATH'D DURING THIS SHIFT. >1L OUTPUT. BLADDER SCAN SHOWING 780 PRIOR TO STRAIGHT CATHING. PT REPORTS FEELING BETTER AFTER STRAIGHT CATH. PT DENIES A NEED FOR AN ANALGESIC. PT IS INDEPENDENT WITHIN THE HOSPITAL ROOM, ABLE TO MAKE HIS NEEDS KNOWN. BOUNDARIES CREATED WITH THE PT REGARDING ICE CREAM AND SODA REQUESTS, PT AGREEABLE. PROVIDED ACTIVE LISTENING AND EMPATHY TO THE PT. CONTINUING PT EDU. BED AT THE LOWEST POSITION, CALL LIGHT W/I REACH.
[2025-06-06 03:57] VITALS: BP 127/78
[2025-06-06 05:33] LABS: Hematocrit 26.9 % (37.0-53.0); Hemoglobin 8.5 g/dL (13.5-17.5); Mean Corpuscular HGB Conc 31.6 g/dL (31.5-36.5); Mean Corpuscular Volume 95 fL (80-100); NRBC ABSOLUTE 0.00 K/mm3 (0.00-0.02); NRBC Auto 0.0 /100 WBC (0.0-0.2); Platelet Count 448 K/mm3 (150-400); RDW Coefficient Variation 15.0 % (11.7-14.2); RDW Standard Deviation 48.3 fL (35.1-46.3)
[2025-06-06 05:56] LABS: BAND PERCENT MAN 1 % (0-8); BASOPHILS ABSOLUTE MAN 0.00 K/mm3 (0.00-0.23); BASOPHILS PERCENT MAN 0 % (0-2); EOSINOPHILS ABSOLUTE MAN 0.27 K/mm3 (0.00-0.68); EOSINOPHILS PERCENT MAN 2 % (0-6); LYMPHOCYTES ABSOLUTE MAN 0.41 K/mm3 (0.84-5.20); LYMPHOCYTES PERCENT MAN 3 % (21-46); METAMYELOCYTE ABSOLUTE MAN 0.27 K/mm3 (0.00-0.00); METAMYELOCYTE PERCENT MAN 2 % (0-0); MONOCYTES ABSOLUTE MAN 0.41 K/mm3 (0.16-1.47); MONOCYTES PERCENT MAN 3 % (4-13); MYELOCYTE ABSOLUTE MAN 0.27 K/mm3 (0.00-0.00); MYELOCYTE PERCENT MAN 2 % (0-0); NEUTROPHILS ABSOLUTE MAN 12.22 K/mm3 (1.96-9.15); SEG NEUTROPHILS PERCENT MAN 87 % (41-73)
[2025-06-06 06:00] LABS: Albumin, Blood 2.2 g/dL (3.4-5.0); Anion Gap 15 mmol/L (3-11); Blood Urea Nitrogen 121 mg/dL (8-24); CO2, Blood 21 mmol/L (21-32); Calcium, Blood 8.1 mg/dL (8.5-10.1); Chloride, Blood 103 mmol/L (98-108); Creatinine, Blood 7.44 mg/dL (0.60-1.20); Glucose, Blood 109 mg/dL (70-99); Phosphorus, Blood 4.8 mg/dL (2.5-4.9); Potassium, Blood 5.7 mmol/L (3.5-5.5); Sodium, Blood 133 mmol/L (136-145)
[2025-06-06 07:57] VITALS: BP 127/69
[2025-06-06] MEDS ORDERED: Dextrose 50% 50 ML Vial IV ONE (08:15)
[2025-06-06] MEDS ORDERED: Insulin Regular 100 UNIT/ML 10ML Vial IV ONE (08:15)
--- NOTE | 2025-06-06 09:00 | NUR ---
pt laying in bed with eyes closed, when he wakes he is irritable about being woke, states he doesn't get any sleep here, went to give hime meds, he refused any needle pokes, got very adement about it, would not have a disscusion, lungs are clear in upper patiño, dim in bases, resp even and unlabored, no cough noted, on r/a, hrr, no edema noted, ppp+1, cap refill<3 sec, vs stable, afebrile, piv to rfa site is clear and patent, infusing lr at 100mls/hr, btx4, states he can't void, last he self cath was 4am per pt, skin c/w/d, roberto campbell, call light in reach.
--- NOTE | 2025-06-06 12:07 | NUR ---
pt has been encouraged frequently to use self cath to drain bladder, he states he wants to take a nap first and went to the bathroom and pushed really hard, and was able to go, brought him a cath kit, he is resistant to using, but states he can do it himself. call light in reach.
[2025-06-06] MEDS ORDERED: ACET325 PO (12:11)
[2025-06-06] MEDS ORDERED: B-COMPLEX WITH1 EAC2 PO (12:12)
[2025-06-06] MEDS ORDERED: CALC.25 PO (12:13)
[2025-06-06] MEDS ORDERED: PAIN RELIEF PA1 EACH TOP (12:13)
[2025-06-06] MEDS ORDERED: SODBIC650 PO (12:14)
--- NOTE | 2025-06-06 13:20 | NUR ---
MICHELA REFRIGERATION MECHANIC NOTIFIED THAT DISCHARGE PAPERWORK IS READY FOR THIS PATEINT AND HE WILL NEED TRANSPORTATION. MICHELA WILL CALL TIME FOR RIDE. IV IS DC'D BY THIS RN INTACT. PATIENT MAKES THREATENING COMMENTS TO THIS RN "IF YOU HURT ME I WILL RESPOND" THIS RN LEAVES ROOM AFTER IF IS DC'D AND WILL NOTIFY SECURITY WHEN RIDE IS ARRANGED AND ASK FOR ESCORT.
--- NOTE | 2025-06-06 13:59 | NUR ---
Pt has been discharged to home, went over discharge instructions with him, he verbalized understanding, he finally self cathed himself, piv removed intact, left via wheelchair with security delivery specialist intact, security walked out with him as he was making inappropriate comments to the breaknurse, pt has all his belongings.
== END 2025-06-06 13:55 | disposition home health service (06) | DRG 871 ==
LOC: ER 10:06 → PCU 12:29 → MEDS 06-02 00:25 → ENPENDDIS 06-06 11:15 → MEDS 06-06 13:55
PROVIDERS: Emergency Medicine; Hospitalist; Internal Medicine; Student in an Organized Health Care Education/Training Program; ADMIT Student in an Organized Health Care Education/Training Program
DX: A41.9 Sepsis, unspecified organism (principal); N17.0 Acute kidney failure with tubular necrosis; I50.22 Chronic systolic (congestive) heart failure; E87.20 Acidosis, unspecified; N13.8 Other obstructive and reflux uropathy; E87.1 Hypo-osmolality and hyponatremia; N39.0 Urinary tract infection, site not specified; I13.2 Hypertensive heart and chronic kidney disease with heart failure and with stage 5 chronic kidney disease, or end stage renal disease; N18.5 Chronic kidney disease, stage 5; R65.20 Severe sepsis without septic shock; D50.9 Iron deficiency anemia, unspecified; F15.10 Other stimulant abuse, uncomplicated; N40.1 Benign prostatic hyperplasia with lower urinary tract symptoms; F17.210 Nicotine dependence, cigarettes, uncomplicated; R50.9 Fever, unspecified; Z86.73 Personal history of transient ischemic attack (TIA), and cerebral infarction without residual deficits; Z79.01 Long term (current) use of anticoagulants; Z74.01 Bed confinement status
CPT/HCPCS: 36415; 51702; 51798; 71046; 74176; 80048; 80053; 80069; 81001; 82330; 82550; 82607; 82728; 82746; 82803; 83540; 83550; 83605; 83735; 83880; 83970; 84100; 84132; 84484; 85014; 85018; 85025; 85027; 87040; 87086; 87147; 93005; 93010; 93306; 94762; 96374-59; 96375-59; 99285-25; A9270; J0612; J0690; J0696; J1644; J1815; J2270; J2405; J2916; J3475; J7030; J7050; J7120; J7799; Q5106